=== PATIENT | male | born 1990 | race American Indian/Alaskan Native ===

== ENCOUNTER 2018-02-07 21:39 | Emergency (ER) | payer MEDICAID ==
[2018-02-07 22:59] LABS: Basophils % (Auto) 0.4 % (0.0-1.8); Eosinophils # (Auto) 0.1 K/mm3 (0.0-0.4); Hematocrit 43.3 % (35.5-45.6); Hemoglobin 14.6 gm/dl (11.8-15.2); Lymphocytes # (Auto) 4.3 K/mm3 (1.2-5.4); Lymphocytes % (Auto) 43.5 % (13.4-35.0); Mean Corpuscular HGB Conc 34 % (32-34); Mean Corpuscular Hemoglobin 33 pg (28-32); Mean Corpuscular Volume 98 fl (84-94); Monocytes % (Auto) 9.7 % (0.0-7.3); Platelet Count 193 K/mm3 (140-440); Red Blood Count 4.44 M/mm3 (3.65-5.03); Red Cell Distribution Width 13.6 % (13.2-15.2)
[2018-02-07 23:08] LABS: BUN/Creatinine Ratio 10; Blood Urea Nitrogen 9 mg/dL (9-20); Hemolysis Index 18
[2018-02-07 23:51] LABS: Bilirubin,Urine NEG (Negative); Blood,Urine SM (Negative); Color,Urine Yellow (Yellow); Protein,Urine <15 mg/dL mg/dL (Negative); Urobilinogen,Urine < 2.0 mg/dL (<2.0)
[2018-02-08] LABS: Amphetamine Screen,Urine PRESUMPTIVE NEGATIVE; Benzodiazepines Screen,Urine PRESUMPTIVE NEGATIVE; Cannabinoid Screen,Urine PRESUMPTIVE NEGATIVE; Cocaine Screen,Urine PRESUMPTIVE NEGATIVE; Methadone Screen,Urine PRESUMPTIVE NEGATIVE; Opiate Screen,Urine PRESUMPTIVE NEGATIVE
--- NOTE | 2018-02-08 04:22 | Emergency Department Report ---
ED Psych HPI - General Chief Complaint: Psych Stated Complaint: MENTAL HEALTH EVALUATION Time Seen by Provider: 02/08/18 04:14 Source: patient Mode of arrival: Ambulatory - History of Present Illness Initial Comments: Patient is a 27-year-old male history of schizophrenia who presented today with chief complaint of hearing voices. Patient stated that he is out of his Zyprexa for the last 3 months. Patient denied any suicidal or homicidal ideation. No visual hallucination. MD Complaint: other (hearing voices) -: Gradual Associated Psychiatric Symptoms: auditory hallucinations Quality: constant Context: not taking psychiatric Associated Symptoms: denies other symptoms - Related Data Home Medications Medication Instructions Recorded Confirmed Last Taken No Known Home Medications [No 09/01/17 09/01/17 Unknown Reported Home Medications] Allergies Allergy/AdvReac Type Severity Reaction Status Date / Time No Known Allergies Allergy Verified 03/07/17 21:08 ED Review of Systems ROS: Stated complaint: MENTAL HEALTH EVALUATION Other details as noted in HPI Comment: All other systems reviewed and negative Respiratory: denies: cough, orthopnea, shortness of breath, SOB with exertion Gastrointestinal: denies: abdominal pain, nausea, vomiting Neurological: denies: headache, weakness ED Past Medical Hx - Past Medical History Previous Medical History?: Yes Hx Headaches / Migraines: Yes (occasional) Hx Psychiatric Treatment: Yes (Anxiety, Psychosis) - Surgical History Additional Surgical History: CIRCUMCISION - Social History Smoking Status: Current Every Day Smoker Substance Use Type: None - Medications Home Medications: Home Medications Medication Instructions Recorded Confirmed Last Taken Type No Known Home Medications [No 09/01/17 09/01/17 Unknown History Reported Home Medications] ED Physical Exam - General Limitations: No Limitations General appearance: alert, in no apparent distress - Head Head exam: Present: atraumatic, normocephalic - Eye Eye exam: Present: normal appearance - ENT ENT exam: Present: normal exam, normal orophraynx, mucous membranes moist - Neck Neck exam: Present: normal inspection, full ROM. Absent: tenderness, meningismus, lymphadenopathy - Respiratory Respiratory exam: Present: normal lung sounds bilaterally. Absent: respiratory distress, wheezes, rales, rhonchi, chest wall tenderness, accessory muscle use, decreased breath sounds, prolonged expiratory - Cardiovascular Cardiovascular Exam: Present: regular rate, normal rhythm, normal heart sounds - GI/Abdominal GI/Abdominal exam: Present: soft, normal bowel sounds. Absent: distended, tenderness, guarding, rebound, organomegaly, mass, bruit, pulsatile mass, hernia - Extremities Exam Extremities exam: Present: normal inspection, full ROM, normal capillary refill - Back Exam Back exam: Present: normal inspection, full ROM. Absent: CVA tenderness (L) - Neurological Exam Neurological exam: Present: alert, oriented X3, CN II-XII intact, normal gait, reflexes normal - Psychiatric Psychiatric exam: Present: normal affect, normal mood. Absent: depressed, agitated, anxious, flat affect, manic, homicidal ideation, suicidal ideation - Skin Skin exam: Present: warm, intact, normal color ED Course Vital Signs 02/07/18 22:08 Temperature 98.3 F Pulse Rate 73 Respiratory 18 Rate Blood Pressure 117/69 O2 Sat by Pulse 98 Oximetry ED Medical Decision Making - Lab Data Result diagrams: 02/07/18 22:45 02/07/18 22:45 Critical care attestation.: If time is entered above; I have spent that time in minutes in the direct care of this critically ill patient, excluding procedure time. ED Disposition Clinical Impression: Auditory hallucinations Disposition: DC/TX-65 PSY HOSP/PSY UNIT Is pt being admited?: No Condition: Stable Referrals: PRIMARY CARE, [Primary Care Provider] - 3-5 Days
[2018-02-08 10:42] VITALS: BP 98/44
== END 2018-02-08 16:32 ==
LOC: EDSEX → EDBD → MERGE 21:39 → ED 21:39
DX: F41.9 Anxiety disorder, unspecified (principal); G43.909 Migraine, unspecified, not intractable, without status migrainosus; F17.200 Nicotine dependence, unspecified, uncomplicated
CPT/HCPCS: 36415; 80048; 80307; 81001; 85025; 99285; G0480; 80320

== ENCOUNTER 2018-02-10 04:09 | Emergency (ER) | payer MEDICAID ==
--- NOTE | 2018-02-10 09:25 | Emergency Department Report ---
HPI - General Chief Complaint: Medical Clearance Time Seen by Provider: 02/10/18 08:23 - HPI HPI: Patient here requested that he needs medication for his mental problem. He has a history of anxiety and psychosis. Patient said he has been evaluated in the past and was on Zyprexa but he is not taking any right now because he doesn't have any medication. He denies homicide or suicide ideation. He said he is having visual and auditory hallucination but cannot be specific but says that they're not telling him to harm himself or anyone else. Denies any pain. Denies any fever or chills. Denies any headache. ED Past Medical Hx - Past Medical History Previous Medical History?: Yes Hx Psychiatric Treatment: Yes (Anxiety, Psychosis) - Surgical History Past Surgical History?: Yes Additional Surgical History: CIRCUMCISION - Family History Family history: hypertension - Social History Smoking Status: Current Every Day Smoker Substance Use Type: None - Medications Home Medications: Home Medications Medication Instructions Recorded Confirmed Last Taken Type No Known Home Medications [No 09/01/17 09/01/17 Unknown History Reported Home Medications] ED Review of Systems ROS: Stated complaint: RX REFILL Other details as noted in HPI Comment: All other systems reviewed and negative Constitutional: no symptoms reported ENT: denies: throat pain, congestion Respiratory: no symptoms reported Cardiovascular: denies: chest pain, palpitations, edema, syncope Gastrointestinal: denies: abdominal pain, nausea, vomiting Musculoskeletal: denies: back pain, joint swelling, arthralgia Skin: denies: rash Neurological: denies: headache, abnormal gait Psychiatric: depression, auditory hallucinations, visual hallucinations. denies : anxiety, homicidal thoughts, suicidal thoughts Physical Exam - Physical Exam Vital Signs: Vital Signs 02/10/18 04:29 Temperature 98.2 F Pulse Rate 71 Blood Pressure 117/73 O2 Sat by Pulse 97 Oximetry General: This is a 27-year-old male well-nourished well-developed in no acute distress. Patient is nontoxic in appearance Physical Exam: Head: Normocephalic, atraumatic, no abrasion, no bruising and no contusion. Eyes: Biateral pupils equal and reactive to light, bilateral EOM intact.. Bilateral conjunctival and sclera without injection, normal accommodation. Mouth: Mucosa dry, no pharyngeal exudate or erythema. No peritonsillar abscesses. Uvula is midline and oral airways patent. Neck: Supple, No Cervical adenopathy, full range of motion and no C-spine tenderness. No swelling or tracheal deviation normal reflexes Cardiovascular: S1, S2. Regular rate and rhythm. No murmur. Capillary refill is less then 3 seconds. Lungs: Clear to auscultate bilaterally. No rhonchi, wheezes or rales. No chest wall tenderness. No chest contusion. No bruising to chest. Abdomen: Non-tender to palpate in all quadrants, no guarding or rebound tenderness, positive bowel sounds in all quadrants. No CVA tenderness. Extremities: No clubbing, cyanosis or edema. +2 pulses. No neurovascular compromise Skin: Clean, dry and intact. No rash or lesions. Mini Neurological: GCS at 15, Pt is alert and oriented 3 speech is clear . Normal gait Psych: Positive visual and auditory hallucination. Positive depression. Denies any suicide or , side ideation ED Course Vital Signs 02/10/18 04:29 Temperature 98.2 F Pulse Rate 71 Blood Pressure 117/73 O2 Sat by Pulse 97 Oximetry - Reevaluation(s) Reevaluation #1: 02/10/18 09:40 I spoke with mental [facility]. She will be evaluating patient and will let me know plan of care. Patient is aware Reevaluation #2: 02/10/18 11:22 Patient seen by Alcira who is a mental health associate/[employer] and she cleared patient to be discharged home. She said patient has been here several times this week with the same complaints. She said the patient lives with mom and she told patient that he needs to follow-up with outpatient psychiatry as was referred earlier this week. Standard and stable. Mental health cleared patient to be discharged. She needs the psychiatrist to have medication refill. ED Medical Decision Making - Medical Decision Making ED course: Patient here requesting a refill on Zyprexa via and he is also homeless. He lives with his mom but said that his mom and him had a disagreement so he left. Patient was seen by mental health associated sharing and she said the patient has been here several times this week for similar complaint. Patient is not suicidal or homicidal. He needs to be restarted on his mental medication which she was given referral to outpatient mental health to see a psychiatrist but he has not done so. Mental health clear patient to be discharged home and she spoke with patient until patient to try to go back home to his mom. She tried to reach out to his mom but she could not get in touch because she says she might be at work and cannot answer the phone. Patient said he thinks he'll be able to go back home. Patient is stable in no acute distress. Discharge from emergency room in stable condition to follow up with outpatient mental health clinic. Critical care attestation.: If time is entered above; I have spent that time in minutes in the direct care of this critically ill patient, excluding procedure time. ED Disposition Clinical Impression: Psychiatric disorder, Hallucination, Noncompliance with treatment plan Disposition: DC-01 TO HOME OR SELFCARE Is pt being admited?: No Does the pt Need Aspirin: No Condition: Stable Instructions: Medical Clearance for Psychiatric Care (ED), Normal Exam (ED) Additional Instructions: Please follow up with outpatient mental health clinic that you were referred to by mental health. Please call today to schedule an appointment so he can get your medication refill Referrals: [facility] [Outside] - 02/13/18
[2018-02-10 11:59] VITALS: BP 138/80
== END 2018-02-10 11:54 | disposition home or self-care (01) ==
LOC: EDBD → EDSEX → ED 04:09 → MERGE 04:09 → ED 11:54
DX: F23 Brief psychotic disorder (principal); F17.200 Nicotine dependence, unspecified, uncomplicated; F41.9 Anxiety disorder, unspecified
CPT/HCPCS: 99281

== ENCOUNTER 2018-02-11 03:57 | Emergency (ER) | payer SELFPAY | END 2018-02-11 03:58 | disposition left against medical advice (07) | LOC: ED 03:57 | DX: Z53.21 Procedure and treatment not carried out due to patient leaving prior to being seen by health care provider (principal) ==